=== PATIENT | female | born 1990 | race African-American/Black ===

== ENCOUNTER 2022-05-25 10:42 | Emergency (ER) | payer OTHER ==
[2022-05-25 11:02] VITALS: BP 128/78; PULSE 73; RESP 18; TEMP 98; BMI 36.7
== END 2022-05-25 14:04 | disposition left against medical advice (07) ==
LOC: JER 10:42
DX: R10.9 Unspecified abdominal pain (principal)
CPT/HCPCS: 99281-25

== ENCOUNTER 2022-05-26 07:02 | Inpatient (IN) | payer OTHER ==
[2022-05-26] MEDS ORDERED: DEXTROSE 5%-0.45% SALINE 1,000 ML IV SCH ×2 (08:15→15:35)
[2022-05-26 08:57] LABS: BASO % 0.8 % (0-2.0); HEMATOCRIT 28.7 % (32.4-45.2); HEMOGLOBIN 8.7 GM/dL (10.7-15.3); LYMPH % 38.9 % (8-40); MCHC 30.4 g/dl (32.0-36.0); MEAN CELL VOLUME 72.2 fl (80-96); MEAN PLT VOLUME 8.3 fl (7.5-11.1); MONO % 7.5 % (3.8-10.2); NEUT % 49.8 % (42.8-82.8); PLATELET COUNT 415 10^3/uL (134-434); RBC 3.98 M/mm3 (3.60-5.2); RDW 17.2 % (11.6-15.6); WHITE BLOOD COUNT 4.5 K/mm3 (4.0-10.0)
[2022-05-26 09:02] LABS: INR 1.16 (0.83-1.09); PROTHROMBIN TIME (PATIENT) 13.4 SEC (9.7-13.0)
[2022-05-26 09:20] LABS: BLOOD UREA NITROGEN 14.8 mg/dL (7-18); CALCIUM 8.8 mg/dL (8.5-10.1)
[2022-05-26 09:21] LABS: ALBUMIN 3.6 g/dl (3.4-5.0)
[2022-05-26 09:23] LABS: CREATININE 0.7 mg/dL (0.55-1.3)
[2022-05-26 09:25] LABS: BILIRUBIN,TOTAL 0.5 mg/dL (0.2-1); TOT PROT 6.8 g/dl (6.4-8.2)
[2022-05-26] MEDS ORDERED: PANTOPRAZOLE SODIUM 40 MG VIAL IVPUSH SCH (10:00)
[2022-05-26] MEDS ORDERED: PANTOPRAZOLE SODIUM 40 MG VIAL ONE (10:44)
[2022-05-26 11:44] LABS: PH,URINE 6.5 (5.0-8.0); URINE APPEARANCE CLEAR; URINE BILIRUBIN NEGATIVE (NEGATIVE); URINE COLOR YELLOW; URINE GLUCOSE (UA) NEGATIVE (NEGATIVE); URINE KETONE TRACE (NEGATIVE); URINE LEUK ESTERASE NEGATIVE (NEGATIVE); URINE NITRITE NEGATIVE (NEGATIVE); URINE PROTEIN NEGATIVE (NEGATIVE); URINE UROBILINOGEN 0.2 mg/dL (0.2-1.0)
[2022-05-26] MEDS ORDERED: BUPIVACAINE HCL/PF 0.5% (5 MG/ML) 30 ML VIAL IJ ONE (12:00)
[2022-05-26] MEDS ORDERED: cefOXitin SODIUM 2 GM VIAL (RESTRICTED TO ID) IVPB ONE (12:11)
[2022-05-26] MEDS ORDERED: BUPIVACAINE HCL/PF 0.25% (2.5MG/ML) 10 ML VIAL ONE (12:20)
[2022-05-26] MEDS ORDERED: ONDANSETRON 4 MG/2 ML VIAL IVPUSH PRN ×2 (12:46→15:35)
[2022-05-26] MEDS ORDERED: PROPOFOL 20 ML ONE ×2 (12:49→13:05)
[2022-05-26] MEDS ORDERED: ROCURONIUM BROMIDE 50 MG/5 ML SYRINGE ONE ×3 (12:50→13:50)
[2022-05-26] MEDS ORDERED: MIDAZOLAM HCL 2 MG/2 ML SINGLE DOSE VIAL ONE (12:54)
[2022-05-26] MEDS ORDERED: LACTATED RINGERS SOLUTION 1,000 ML IV SCH (13:00)
[2022-05-26] MEDS ORDERED: ACETAMINOPHEN INJECTION 100 ML IVPB ONE (13:10)
[2022-05-26] MEDS ORDERED: DEXAMETHASONE SOD PHOSPHATE 4 MG/1 ML VIAL ONE (13:10)
[2022-05-26] MEDS ORDERED: ceFAZolin SODIUM 1 GM VIAL ONE (13:11)
[2022-05-26] MEDS ORDERED: HYDROmorphone HCl 2 MG/ML VIAL ONE (13:12)
[2022-05-26] MEDS ORDERED: LIDOCAINE HCL/PF 2% SDV 5ML VIAL ONE (14:05)
[2022-05-26] MEDS ORDERED: NEOSTIGMINE METHYLSULFATE 0.5 MG/ML - 10 ML MDV ONE (14:36)
[2022-05-26] MEDS ORDERED: GLYCOPYRROLATE 0.2 MG/1 ML VIAL ONE ×2 (14:36)
[2022-05-26] MEDS ORDERED: BUPIVACAINE HCL/PF 0.25% (2.5MG/ML) 10 ML VIAL IJ ONE (15:00)
[2022-05-26] MEDS ORDERED: oxyCODONE HCL 5 MG TABLET PO PRN (15:33)
[2022-05-26] MEDS: oxyCODONE HCL 5 MG TABLET PO PRN ×2 (18:18→23:58)
[2022-05-26 19:10] VITALS: BMI 38.0
[2022-05-26] MEDS: ACETAMINOPHEN 500 MG TABLET (FP) PO PRN (21:17)
[2022-05-27] MEDS: ACETAMINOPHEN 500 MG TABLET (FP) PO PRN ×2 (04:30→10:26)
[2022-05-27] MEDS: oxyCODONE HCL 5 MG TABLET PO PRN ×3 (06:11→18:59)
[2022-05-27] MEDS ORDERED: PANTOPRAZOLE SODIUM 40 MG VIAL IVPUSH SCH (10:00)
[2022-05-27 10:41] VITALS: RESP 18
[2022-05-27 12:02] LABS: INR 1.26 (0.83-1.09); PROTHROMBIN TIME (PATIENT) 14.5 SEC (9.7-13.0)
[2022-05-27 12:09] LABS: BASO % 0.8 % (0-2.0); HEMATOCRIT 26.1 % (32.4-45.2); HEMOGLOBIN 8.3 GM/dL (10.7-15.3); LYMPH % 19.3 % (8-40); MCH 22.9 pg (25.7-33.7); MCHC 31.8 g/dl (32.0-36.0); MEAN CELL VOLUME 71.8 fl (80-96); MEAN PLT VOLUME 8.4 fl (7.5-11.1); MONO % 8.6 % (3.8-10.2); NEUT % 69.3 % (42.8-82.8); PLATELET COUNT 378 10^3/uL (134-434); RBC 3.63 M/mm3 (3.60-5.2); RDW 17.2 % (11.6-15.6)
[2022-05-27 12:19] LABS: CALCIUM 8.5 mg/dL (8.5-10.1)
[2022-05-27 12:20] LABS: ALBUMIN 3.1 g/dl (3.4-5.0); BLOOD UREA NITROGEN 9.3 mg/dL (7-18)
[2022-05-27 12:22] LABS: PHOSPHOROUS 3.9 mg/dL (2.5-4.9)
[2022-05-27 12:23] LABS: CREATININE 0.8 mg/dL (0.55-1.3)
[2022-05-27 12:24] LABS: BILIRUBIN,TOTAL 0.5 mg/dL (0.2-1); TOT PROT 5.8 g/dl (6.4-8.2)
[2022-05-27 15:41] VITALS: PULSE 68
[2022-05-27] MEDS ORDERED: IRON SUCROSE INJECTION 200 MG in SODIUM CHLORIDE 90 ML IVPB ONE (17:00)
[2022-05-27 18:41] VITALS: BP 147/83; TEMP 98.2
== END 2022-05-27 20:08 | disposition home or self-care (01) | DRG 229 ==
LOC: JER 07:02 → JERBED 08:55 → J6S 13:30 → JERBED 13:57 → J5S 17:38
PROVIDERS: ADMIT Internal Medicine; ATTEND Internal Medicine
PROC: 0DQV4ZZ Repair Mesentery, Percutaneous Endoscopic Approach (ICD-10-PCS; principal; 2022-05-26 10:00)
DX: K46.9 Unspecified abdominal hernia without obstruction or gangrene (principal); D50.9 Iron deficiency anemia, unspecified; E66.9 Obesity, unspecified; Z68.38 Body mass index [BMI] 38.0-38.9, adult; K21.9 Gastro-esophageal reflux disease without esophagitis; I10 Essential (primary) hypertension
CPT/HCPCS: 36415; 80053; 81003; 82728; 83540; 83550; 83735; 84100; 84703; 85025; 85045; 85610; 85730; 86850; 86900; 86901; 93005; 93010; 94760; 99285-25; C9803-CS; J1756; U0003; U0005